=== PATIENT | female | born 1965 | race Caucasian/White ===

== ENCOUNTER 2016-11-03 09:33 | Emergency (ER) | payer OTHER ==
[2016-11-03 10:18] VITALS: BP 148/91
[2016-11-03] MEDS ORDERED: METHYLPREDNISOLONE ACETATE 80 MG/ML VIAL IM ONE (11:11)
--- NOTE | 2016-11-03 11:19 | ERNOTE ---
Integumentary HPI - Narrative Date of Service: 11/03/16 - General Presenting Symptoms: rash Time Seen by Provider: 11/03/16 11:06 Source: patient Exam Limitations: no limitations - Immun/Allergies/Home Medications Immunizations: IMMUNIZATION HX Immunizations Up to Date Yes History of Influenza Vaccine No Hx Pneumococcal Vaccination No Allergies/Adverse Reactions: Allergies Allergy/AdvReac Type Severity Reaction Status Date / Time No Known Allergies Allergy Unverified 11/03/16 10:18 Home Medications: HOME MEDICATIONS predniSONE [Prednisone] 3 tab PO DAILY #9 tab 11/03/16 [Last Taken Unknown] - History of Present Illness Narrative: Pt. comes in with c/o rash on face forearms and neck after she was pulling weeds by her door yesterday. Pt. denies any blurred vision itchy eyes, fever, SOB, NVD, recent illness. Pt. states that she took one 25mg benedryl last night with short term relief. Pt. denies any aggravating factors. Review of Systems - Review of Systems Constitutional: Present: no symptoms reported. Absent: recent illness, fever, chills, weakness, fatigue, malaise EYE: Present: no symptoms reported ENT: Present: no symptoms reported Respiratory: Present: no symptoms reported. Absent: shortness of breath, cough , wheezing Cardiology: Present: no symptoms reported. Absent: chest pain, palpitations, edema Gastrointestinal/Abdominal: Present: no symptoms reported. Absent: nausea, vomiting, diarrhea Genitourinary: Present: no symptoms reported Musculoskeletal: Present: no symptoms reported. Absent: back pain, joint pain Skin: Present: rash - diffuse maculopapular on face and inner forearms Neurological: Present: no symptoms reported. Absent: headache, dizziness/light- headedness, numbness, tingling All Other Systems: All systems neg except as marked - Patient's Past Medical History Patient History - Medical: No pertinent hx - Family History Mother Family History - Medical: Diabetes Type 2 Father Family History - Medical: Family History - Cancer: Other - Social History Living Situations: spouse Abuse History: No History of abuse Psych History: No pertinent hx Smoking Status: Never smoker Have you smoked in the past 12 months: No Do you dip or chew tobacco: No Alcohol Use: none Drug Use: none - Immunizations Immunizations Up to Date: Yes Hx Pneumococcal Vaccination: No History of Influenza Vaccine: No Physical Exam - Physical Exam General Appearance: Present: wd/wn, alert, no apparent distress Head Exam: Present: no evidence of injury Eye Exam: PERRL: bilateral, EOMI: bilateral, Eyelid inflammation: bilateral, Other: bilateral - no injection of eye or inner eyelid Ears, Nose, Throat: Present: normal ENT inspection, normal pharynx Neck: Present: nontender Respiratory: Present: no respiratory distress, normal breath sounds, no accessory muscle use, chest nontender, lungs clear Cardiovascular/Chest: Present: regular rate, rhythm, no murmur, normal peripheral pulses Extremity Exam: Present: non-tender, normal range of motion, no edema Neurological Exam: Present: alert, oriented, normal mood/affect, no motor/ sensory deficits Skin Exam: Present: normal color, warm/dry, skin rash - diffuse maculopapular on face and inner forearms ED Progress - Vital Signs Patient's Vital Signs:: I have reviewed the patient's vital signs. Vital Signs: Vital Signs 11/03/16 10:13 Temperature 37.1 C Pulse Rate 70 Respiratory 16 Rate Blood Pressure 148/91 O2 Sat by Pulse 100 Oximetry - Progress/Reassessment Chief Complaint: Rash Departure Clinical Impression: Poison leigh dermatitis - Departure Disposition: Home self-care Condition: Good Instructions: Poison Leigh Dermatitis, [id number] Additional Instructions: Please take benedryl 50mg when you get home then take 25 mg every six hours after this. Referrals: TATO SMITH [Primary Care Provider] - Prescriptions: predniSONE [Prednisone] 3 tab PO DAILY #9 tab
[2016-11-03] MEDS ORDERED: METHYLPREDNISOLONE SOD SUCC/PF 125 MG/2 ML VIAL ONE (11:23)
== END 2016-11-03 11:32 | disposition home or self-care (01) ==
LOC: ER 09:33
DX: L23.7 Allergic contact dermatitis due to plants, except food (principal)